=== PATIENT | female | born 1960 | race Caucasian/White ===

== ENCOUNTER 2018-11-21 17:02 | Inpatient (IN) ==
--- NOTE | 2018-11-21 18:39 | Diag Imaging Result Doc PS360 ---
XRAY HIP UNILATERAL RT - 11/21/2018 INDICATION: s/p fall TECHNIQUE: Two views COMPARISON: None FINDINGS: There is a displaced intertrochanteric right proximal femur fracture. No dislocation. IMPRESSION: Displaced intertrochanteric right proximal femur fracture. Electronically signed by Pradeep Jacskon 11/21/2018 6:37 PM
[2018-11-21] MEDS ORDERED: PERCOCET-10 PO ONE (19:25)
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
[2018-11-21 20:12] LABS: BASO# 0.06 X1000 (0.0-0.2); BASO% 0.3 % (0.0-0.8); EOS# 0.41 X1000 (0.0-0.7); EOS% 1.8 % (0.0-10.0); HEMATOCRIT 48.4 % (37.0-47.0); HEMOGLOBIN 15.6 g/dL (12.0-16.0); IMM GRAN# 0.11 X1000 (0.0-0.04); IMM GRAN% 0.5 % (0.0-0.5); LYMPH# 3.66 X1000 (1.2-3.4); LYMPH% 16.4 % (20.5-51.1); MCH 30.6 PG (27-31); MCHC 32.2 g/dL (33-37); MCV 94.9 FL (81-99); MONO# 2.14 X1000 (0.11-0.59); MONO% 9.6 % (1.7-9.3); MPV 10.7 FL (7.4-10.4); NEUT# 15.96 X1000 (1.4-6.5); NEUT% 71.4 % (42.2-75.2); PLT 366 X1000 (130-400); RDW 13.6 % (11.5-14.5); WBC 22.34 X1000 (4.8-10.8)
[2018-11-21 20:27] LABS: AGAP 12; ALB/GLOB RATIO 0.6; ALKALINE PHOSPHATASE 108 U/L (32-104); BUN 39 mg/dL (8-22); CALCIUM 10.8 mg/dL (8.8-10.2); CHLORIDE 95 mmol/L (98-107); COSMO 286; CREATININE 0.9 mg/dL (0.5-0.9); ESTIMATED GFR > 60; GLUCOSE 219 mg/dL (70-104); GOT 34 U/L (10-30); GPT 29 U/L (10-36); POTASSIUM 5.1 mmol/L (3.5-5.1); SODIUM 135 mmol/L (136-145); TCO2 28 mmol/L (25-35); TOTAL BILIRUBIN 0.28 mg/dL (0.20-1.00); TOTAL PROTEIN 8.1 g/dL (6.3-8.3)
--- NOTE | 2018-11-21 21:18 | Diag Imaging Result Doc PS360 ---
CHEST-PORTABLE - 11/21/2018 INDICATION: Fall, Hip Fx,Leukocytosis COMPARISON: 04/11/2015 FINDINGS: Stable metallic stents in the aortic arch. The lungs are clear. Heart size is normal. No pneumothorax or pleural effusion. IMPRESSION: No acute disease or change from prior. Electronically signed by Pradeep Jackson 11/21/2018 9:16 PM
[2018-11-21] MEDS ORDERED: NS 1,000 ML IV SCH (21:48)
[2018-11-21] MEDS ORDERED: ZOFRAN IV PRN (21:48)
[2018-11-21] MEDS ORDERED: TYLENOL PO PRN (21:48)
[2018-11-21 21:52] LABS: HEMOGLOBIN A1C 9.6 % (4.8-6.0)
[2018-11-21] MEDS ORDERED: NICODERM PATCH TD PRN (21:52)
[2018-11-21 22:11] LABS: INR 0.87; PROTIME 12.5 Seconds (11.0-16.0)
[2018-11-21 22:12] LABS: PTT 30.2 Seconds (22.3-41.8)
--- NOTE | 2018-11-21 22:50 | HISTORY AND PHYSICAL ---
ADDENDUM: We examined this patient together. She is a pleasant 57-year-old female who came in for evaluation after she twisted her right leg. I think she was trying to throw out some trash. She fell, kind of sat down, but her foot came down hard and she felt a pop in her hip, and subsequently could not walk or anything to that degree. She was found to have, I believe, a displaced intertrochanteric hip fracture. On exam, she is breathing comfortably. No wheezing or rales. Her right leg is externally rotated but not foreshortened. Her labs show significant leukocytosis. She also has a little bit of hypercalcemia. In any case she will be admitted for her right hip fracture. She has metallic stents in her aortic arch, which she did not talk about before. I do not know if she has had an aortic repair. She is not on any blood thinners, so I do not know if she has had a graft her aorta or what have you. She has had an aneurysm repair. She will be admitted for treatment. We will continue pain control, analgesic control, and Dr. Chaudhari has been consulted for evaluation for hip fracture. This was a [id number] encounter note with YOHANA Fang. cc: Nehemiah Langley MD
[2018-11-21] MEDS: HUMULIN R SUBQ SCH (23:34)
[2018-11-22 00:02] LABS: URINE SOURCE CATH
[2018-11-22 00:06] LABS: UR EPITHELIAL CELLS <10 /HPF (<10); URINE BACTERIA 4+ /HPF; URINE RBC <10 /HPF (<10); URINE WBC <10 /HPF (<10)
[2018-11-22 00:07] LABS: BILIRUBIN URINE NEGATIVE (NEGATIVE); BLOOD URINE TRACE (NEGATIVE); COLOR YELLOW; GLUCOSE URINE NEGATIVE (NEGATIVE); KETONE URINE NEGATIVE (NEGATIVE); LEUKOCYTES URINE SMALL (NEGATIVE); NITRITE URINE NEGATIVE (NEGATIVE); PROTEIN URINE 300 mg/dL (NEGATIVE); SP GRAVITY URINE 1.016; TURBIDITY URINE HAZY (CLEAR); UROBILINOGEN URINE NORMAL (NORMAL)
[2018-11-22] MEDS: DILAUDID IV PRN ×2 (00:07→06:08)
[2018-11-22] MEDS ORDERED: NEURONTIN PO PRN (02:30)
[2018-11-22] MEDS: NS 1,000 ML IV SCH ×2 (05:41→09:19)
[2018-11-22 06:13] LABS: BASO# 0.15 X1000 (0.0-0.2); BASO% 0.8 % (0.0-0.8); EOS# 0.56 X1000 (0.0-0.7); EOS% 2.9 % (0.0-10.0); HEMATOCRIT 47.8 % (37.0-47.0); HEMOGLOBIN 15.3 g/dL (12.0-16.0); IMM GRAN# 0.09 X1000 (0.0-0.04); IMM GRAN% 0.5 % (0.0-0.5); LYMPH% 28.7 % (20.5-51.1); MCH 31.3 PG (27-31); MCV 97.8 FL (81-99); MONO# 2.29 X1000 (0.11-0.59); MPV 10.6 FL (7.4-10.4); NEUT# 10.55 X1000 (1.4-6.5); NEUT% 55.1 % (42.2-75.2); PLT 267 X1000 (130-400); RBC 4.89 XMIL (4.2-5.4); WBC 19.14 X1000 (4.8-10.8)
[2018-11-22 06:16] LABS: HEMOGLOBIN A1C 9.7 % (4.8-6.0)
[2018-11-22 06:53] LABS: EOS 1 % (1-10); LYMPHS 34 % (21-51); MONO 4 % (1-9); SEGS 60 % (42-75)
[2018-11-22 07:07] LABS: AGAP 13; ALKALINE PHOSPHATASE 101 U/L (32-104); BUN 36 mg/dL (8-22); CALCIUM 8.9 mg/dL (8.8-10.2); CHLORIDE 97 mmol/L (98-107); COSMO 284; CREATININE 0.8 mg/dL (0.5-0.9); ESTIMATED GFR > 60; GLUCOSE 167 mg/dL (70-104); GOT 37 U/L (10-30); GPT 26 U/L (10-36); POTASSIUM 5.5 mmol/L (3.5-5.1); SODIUM 136 mmol/L (136-145); TCO2 26 mmol/L (25-35); TOTAL BILIRUBIN 0.24 mg/dL (0.20-1.00); TOTAL PROTEIN 6.1 g/dL (6.3-8.3)
[2018-11-22] MEDS: HUMULIN R SUBQ SCH ×4 (07:11→21:04)
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
[2018-11-22] MEDS: DUONEB (A & A) INH PRN (08:06)
[2018-11-22] MEDS: LEXAPRO PO SCH ×2 (09:21→14:56)
[2018-11-22] MEDS ORDERED: ROBINUL ONE (11:33)
[2018-11-22] MEDS ORDERED: XYLOCAINE-MPF 2% ONE (11:33)
[2018-11-22] MEDS ORDERED: ZOFRAN ONE (11:33)
[2018-11-22] MEDS ORDERED: FENTANYL ONE (11:33)
[2018-11-22] MEDS ORDERED: DECADRON ONE (11:33)
[2018-11-22] MEDS ORDERED: VANCOMYCIN 1 GM/NS 1 GM/250 ML IVPB ONE (11:34)
[2018-11-22] MEDS ORDERED: DIPRIVAN 1% ONE (11:34)
--- NOTE | 2018-11-22 12:07 | PROGRESS NOTE ---
DATE: 11/22/2018 SUBJECTIVE: This morning Ms. Tripp refers to be feeling okay, is awaiting for an orthopedic intervention. She still complains of some pain in the right hip. OBJECTIVE: Vital signs: Blood pressure is 119/47, pulse of 67, respirations 20, temperature 97.1 degrees, the patient is saturating 93% on room air. General: Ms. Tripp is a 57-year-old female. She is in bed, no distress. HEENT: Mucosa is pink and moist. Anicteric. Acyanotic. Neck: Supple. Chest: Air entry is bilaterally reduced. There is some faint end expiratory wheezing. There is also prolonged expiratory phase of respiration. Cardiovascular: Regular rate and rhythm. Abdomen: Soft. There is an old midline surgical scar from previous exploratory laparotomy. Extremities: No pedal edema. The right lower extremity is externally rotated and looks shorter. Genitourinary: Jiménez catheter is in place. Central nervous system: Patient is awake, alert, and oriented. LABORATORY DATA: WBC is 19.14, hemoglobin is 15.3, platelet count of 267,000. Differential is very normal. Chemistry is also reviewed, potassium is 5.5. Rest of chemistry is unremarkable. Patient's A1c is 9.7. IMAGIN. A hip x-ray shows a displaced intertrochanteric right proximal femur fracture. 2. A chest x-ray showed no acute disease. 3. I do not see any EKG. 4. An echocardiogram from 2018 did show an ejection fraction of 60 to 65 percent. There was no wall motion abnormality. No major valvulopathy. ASSESSMENT AND PLAN: 1. Status post mechanical fall. 2. Right intertrochanteric displaced fracture as a result of mechanical fall. The patient has been evaluated by Orthopedics and there is a plan for surgical intervention today. 3. Diabetes mellitus with presenting A1c of 9.7. The patient is currently on insulin regimen. We will restart her long acting detemir full dose after surgery. 4. Nicotine dependence. Patient has been counseled. 5. Suspected undiagnosed chronic obstructive pulmonary disease. The patient has more than 30 pack year history, sounds slightly wheezing. She is getting p.r.n. nebulization and we will advise that she follows up with Pulmonary Medicine on an outpatient basis for PFTs and official diagnosis of possible chronic obstructive pulmonary disease. The patient has been counseled about tobacco cessation. 6. Leukocytosis, probably reactive. The patient does not seem to have any focal source of infection. We would continue to keep eye on that. In general, Ms. Tripp is doing a lot better. She is not on any antithrombotic therapy. She does not have any history of cardiac condition nor long-standing chronic renal or liver pathology. She seems to have undiagnosed COPD which is compensated. She is going for a moderate risk nonvascular procedure in a moderate risk patient. We recommend surgery to proceed. cc: Louie Majano MD MTDD
[2018-11-22] MEDS: DILAUDID ONE ×3 (13:01→19:38)
[2018-11-22] MEDS ORDERED: ZOFRAN IV PRN (13:40)
[2018-11-22] MEDS ORDERED: MILK OF MAGNESIA PO PRN (13:40)
[2018-11-22] MEDS ORDERED: MORPHINE IV PRN (13:40)
[2018-11-22] MEDS ORDERED: HALDOL IV PRN (13:45)
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
[2018-11-22] MEDS: TYLENOL PO SCH ×2 (14:54→21:03)
--- NOTE | 2018-11-22 16:13 | OPERATIVE NOTE ---
PROCEDURE DATE: 11/21/2018 PREOPERATIVE DIAGNOSIS: Right intertrochanteric hip fracture. POSTOPERATIVE DIAGNOSIS: Right intertrochanteric hip fracture. PROCEDURE: Right TFN fixation of the hip. SURGEON: Genaro Chaudhari MD. ANESTHESIA: General. COMPLICATION: None. PROCEDURE IN DETAIL: A 57-year-old female presents for surgical fixation of a right intertrochanteric hip fracture. Risks, benefits, and no guarantees were discussed and she is willing to proceed. She was taken to the operating room and satisfactory anesthesia obtained. The right hip was prepped and draped in usual sterile fashion on the [place] table. A time-out was taken to confirm operative site, procedure, and patient. Gentle traction and slight internal rotation was utilized to reduce the hip near anatomically. The lateral aspect of the hip was prepped and draped in usual sterile fashion as noted. After ensuring a proper time-out, a 1 inch incision was made proximal to the greater trochanter and dissection carried down to the tip of the trochanter. TFN guide pin was placed down through the tip of the trochanter and down the intramedullary canal and reamed with the TFN reamer. A short TFN implant was then inserted down the proposed hole intramedullary after removing the guidewire. This was fully seated under fluoroscopic guidance. An accessory lateral incision was made for placement of the helical blade. The guide pin was placed through the guide up through the central aspect of the femoral neck and into the central femoral head with care taken to avoid any articular penetration. This was reamed and a 95 length helical blade inserted through the TFN. The anti-rotation screw was set proximally. The distal locking screw was placed through the short TFN using the provided guide with a 38 mm distal locking screw. The guide was removed and the C-arm used to verify accurate fracture reduction as well as hardware placement. The wounds were irrigated and closed in layers with 2-0 Vicryl and skin izaiah. Sterile dressings completed the closure and the patient was recovered from anesthesia and transferred to the recovery room in stable condition. No intraoperative complications were noted. Instrument count and sponge count was correct at the time of closure. cc: Keith Chaudhari MD
[2018-11-22] MEDS: OXY IR PO PRN ×2 (18:14→21:04)
[2018-11-22] MEDS: SEROQUEL PO SCH (21:03)
[2018-11-22] MEDS: PERIDEX MT SCH (21:04)
[2018-11-22] MEDS: COLACE PO SCH (21:04)
[2018-11-23] MEDS ORDERED: VANCOMYCIN 1 GM/NS 1 GM/250 ML IVPB IV SCH (00:01)
[2018-11-23] MEDS: NS 1,000 ML IV SCH ×3 (00:56→11:58)
[2018-11-23 06:32] LABS: HEMATOCRIT 42.9 % (37.0-47.0); HEMOGLOBIN 13.7 g/dL (12.0-16.0)
[2018-11-23 06:39] LABS: AGAP 5; BUN 26 mg/dL (8-22); CALCIUM 8.9 mg/dL (8.8-10.2); CHLORIDE 103 mmol/L (98-107); COSMO 287; CREATININE 0.7 mg/dL (0.5-0.9); ESTIMATED GFR > 60; GLUCOSE 155 mg/dL (70-104); POTASSIUM 4.9 mmol/L (3.5-5.1); SODIUM 140 mmol/L (136-145); TCO2 32 mmol/L (25-35)
[2018-11-23] MEDS: TYLENOL PO SCH ×2 (06:41→17:40)
[2018-11-23] MEDS: HUMULIN R SUBQ SCH ×4 (06:42→22:23)
[2018-11-23] MEDS: OXY IR PO PRN ×4 (07:57→22:30)
[2018-11-23] MEDS: LEXAPRO PO SCH (08:13)
[2018-11-23] MEDS: FERROUS SULFATE PO SCH (08:14)
[2018-11-23] MEDS: PERIDEX MT SCH ×2 (08:14→22:23)
[2018-11-23] MEDS ORDERED: CLONAZEPAM 2 MG PO PRN (08:30)
[2018-11-23] MEDS ORDERED: GABAPENTIN 800 MG PO PRN (08:30)
--- NOTE | 2018-11-23 10:00 | ORTHOPAEDICS PROGRESS NOTE ---
DATE: 11/23/2018 Ms. Tripp is seen status post pinning of her hip with TFN implant. Presently she is stable. She did have some dizziness when she got up with therapy. Currently, her vital signs are stable. Incision and bandage are clean and dry. She is motor and sensory intact with no signs of bleeding or infection. We will continue to mobilize her hip. She can be transferred out to rehabilitation center when she is mobilizing well. cc: Keith Chaudhari MD
[2018-11-23] MEDS ORDERED: LEVEMIR SUBQ SCH (11:00)
--- NOTE | 2018-11-23 11:52 | PROGRESS NOTE ---
DATE: 11/23/2018 SUBJECTIVE: This morning Ms Tripp refers to be feeling a lot better. The right hip pain has significantly improved since after the surgery. OBJECTIVE: Current vitals: Blood pressure is 128/36, pulse of 72, respiration is 24, temperature 98.3 degrees. On general exam, Ms. Tripp is a 57-year-old female. She is in bed. No seemingly distressed. Mucosa is pink and moist. Anicteric. Acyanotic. Neck is supple. Chest: Air entry is bilaterally reduced. There are no crepitations, no rhonchi. There is a mild prolonged expiratory phase of respiration. Cardiovascular: Regular rate and rhythm. No murmurs, no rubs, no gallops. Gastrointestinal: Abdomen is soft. There is an old midline surgical scar from previous exploratory laparotomy. Extremities: No pedal edema right lower extremity continues to be a little shorter and externally rotated, but the patient has normal sensation. There is sterile gauze over the surgical access on the right hip. LABORATORY DATA: Hemoglobin is 13.7. Chemistry is completely normal. Glucose is 155. ASSESSMENT: 1. Status post mechanical fall resulting in a right intertrochanteric displaced fracture. The patient is status post a right TFN repair of the hip. This was done by Dr. Chaudhari yesterday. 2. Diabetes mellitus with presenting A1c of 9.6. We will start the patient back on her home insulin regimen. 3. Nicotine dependence. Patient has been counseled. 4. Suspected undiagnosed chronic obstructive pulmonary disease. Patient is advised to follow up with Pulmonary Medicine. 5. Reactive leukocytosis. 6. Chronic benzodiazepine and gabapentin use. We will start the patient back on her home medication to prevent any withdrawal. cc: Louie Majano MD
[2018-11-23] MEDS: DUONEB (A & A) INH PRN (19:05)
[2018-11-23] MEDS ORDERED: INSULIN PEN NEEDLES ONE (22:10)
[2018-11-23] MEDS: COLACE PO SCH (22:22)
[2018-11-23] MEDS: SEROQUEL PO SCH (22:22)
[2018-11-23] MEDS: LEVEMIR SUBQ SCH (22:25)
[2018-11-24] MEDS: NS 1,000 ML IV SCH ×2 (00:10→12:31)
[2018-11-24] MEDS: TYLENOL PO SCH ×3 (03:41→21:05)
[2018-11-24] MEDS: OXY IR PO PRN ×4 (04:40→21:02)
[2018-11-24] MEDS: XARELTO PO SCH (05:43)
[2018-11-24 06:31] LABS: HEMATOCRIT 44.2 % (37.0-47.0); HEMOGLOBIN 13.9 g/dL (12.0-16.0); MCH 31.2 PG (27-31); MCHC 31.4 g/dL (33-37); MCV 99.3 FL (81-99); MPV 10.8 FL (7.4-10.4); RBC 4.45 XMIL (4.2-5.4); RDW 13.4 % (11.5-14.5); WBC 19.17 X1000 (4.8-10.8)
[2018-11-24] MEDS: HUMULIN R SUBQ SCH ×3 (06:48→21:03)
[2018-11-24 07:03] LABS: AGAP 11; BUN 13 mg/dL (8-22); CHLORIDE 102 mmol/L (98-107); GLUCOSE 134 mg/dL (70-104); POTASSIUM 5.1 mmol/L (3.5-5.1); SODIUM 138 mmol/L (136-145); TCO2 25 mmol/L (25-35)
[2018-11-24 07:04] LABS: CALCIUM 8.7 mg/dL (8.8-10.2); COSMO 278; CREATININE 0.6 mg/dL (0.5-0.9); ESTIMATED GFR > 60; PHOSPHORUS 2.7 mg/dL (2.7-4.5)
--- NOTE | 2018-11-24 07:29 | EKG Report ---
Test Performed on : 11/22/2018 1:30:51 PM Test Reason : perioperative evaluation. DM/COPD Blood Pressure : / mmHG Vent. Rate : 077 BPM Atrial Rate : 077 BPM P-R Int : 134 ms QRS Dur : 078 ms QT Int : 398 ms P-R-T Axes : 070 -34 080 degrees QTc Int : 450 ms Normal sinus rhythm. Left axis deviation Abnormal ECG When compared with ECG of 21-NOV-2018 21:52, (Unconfirmed) Criteria for Septal infarct are no longer present Confirmed by Betina HUFFMAN, Leobardo Higuera ([id number]) on 11/24/2018 9:30:31 AM
--- NOTE | 2018-11-24 07:52 | EKG Report ---
Test Performed on : 11/21/2018 9:52:55 PM Test Reason : fall Blood Pressure : / mmHG Vent. Rate : 073 BPM Atrial Rate : 073 BPM P-R Int : 136 ms QRS Dur : 078 ms QT Int : 392 ms P-R-T Axes : 074 -27 066 degrees QTc Int : 431 ms Normal sinus rhythm. Septal infarct , age undetermined Abnormal ECG No previous ECGs available Unconfirmed Result
[2018-11-24] MEDS: DUONEB (A & A) INH PRN ×2 (08:34→11:14)
--- NOTE | 2018-11-24 08:41 | ORTHOPAEDICS PROGRESS NOTE ---
DATE: 11/24/2018 SUBJECTIVE DATA: Ms. Tripp is seen on her postoperative right intertrochanteric hip fracture fixation. She reports she is doing well at this time. She reports she did have some slight dizziness when physical therapy came by to get her up out of the bed. She also states that she was unable to walk because of the dizziness. She states her pain is a 5/10 at this time. OBJECTIVE DATA: Incision sites are clean and dry. There is good capillary refill in toes. There are good pedal pulses. There is negative Homans sign. Vital signs are stable. There is a slightly elevated white count. ASSESSMENT: Right intertrochanteric hip fracture with Titanium Trochanteric Fixation Nail. PLAN: We will plan on monitoring Ms. Tripp while she is in the hospital. She will continue to get IV fluids for her dizziness. She will need to be mobilized with physical therapy before going home. We will check back on her tomorrow. Dictated by YOHANA Rincon for Keith Chaudhari MD cc: YOHANA Rincon MD
[2018-11-24] MEDS: LEXAPRO PO SCH (09:12)
[2018-11-24] MEDS: LEVEMIR SUBQ SCH ×2 (09:13→21:01)
[2018-11-24] MEDS: PERIDEX MT SCH ×2 (09:13→21:03)
[2018-11-24] MEDS: FERROUS SULFATE PO SCH (09:13)
[2018-11-24] MEDS ORDERED: PNEUMOVAX 23 IM ONE (10:15)
[2018-11-24] MEDS: KLONOPIN PO PRN (11:24)
--- NOTE | 2018-11-24 12:40 | PROGRESS NOTE ---
DATE: 11/24/2018 SUBJECTIVE: This morning, Ms. Tripp refers to be doing a whole lot better. Still hurting but not like days before. OBJECTIVE: Vital Signs: Blood pressure is 143/50, pulse of 82, respirations are 20, temperature is 98.2 degrees, the patient is saturating 93%. General Examination: Ms. Tripp is a 57-year-old, female. She is in bed. No distress. HEENT: Mucosa is pink and moist. Anicteric. Acyanotic. Neck: Supple. Chest: Good air entry bilaterally. There is a mild prolonged expiratory phase of respiration but no rhonchi. Cardiovascular: Regular rate and rhythm. No murmurs, no rubs, no gallops. GI: Abdomen is soft. There is an old midline surgical scar from previous exploratory laparotomy. Extremities: No pedal edema. The right lower extremity still has a sterile Band-Aid over the lateral aspect but the patient is neurovascularly intact. Laboratory Data: WBC is 19.17, hemoglobin is 13.9, platelet count of 322,000. Chemistry is also reviewed and it is completely normal. The patient's current medications have all been reviewed and no changes. ASSESSMENT: 1. Status post mechanical fall resulting in a right intertrochanteric displaced fracture. The patient is status post right trochanteric fixation nail repair by Dr. Chaudhari. Today is day 2 postop. We are pending physical therapy evaluation. 2. Diabetes mellitus with presenting A1c of 9.6. We will continue with insulin regimen. 3. Nicotine dependence. Patient has been counseled. 4. Suspected undiagnosed chronic obstructive pulmonary disease. Patient will follow up with pulmonary medicine. 5. Reactive leukocytosis. 6. Chronic benzodiazepine and gabapentin use. Patient has been started back. PLAN: Today, Jiménez catheter is going to be removed. We are waiting on physical therapy evaluation, and both social work and case management have been notified about the need for rehab. We are going to be pending the final arrangements. cc: Louie Majano MD
[2018-11-24] MEDS: COLACE PO SCH (21:02)
[2018-11-24] MEDS: SEROQUEL PO SCH (21:03)
[2018-11-25] MEDS: KLONOPIN PO PRN ×2 (00:16→22:51)
[2018-11-25] MEDS: OXY IR PO PRN ×5 (00:16→22:51)
[2018-11-25] MEDS: TYLENOL PO SCH ×3 (06:03→22:52)
[2018-11-25] MEDS: XARELTO PO SCH (06:03)
[2018-11-25 06:12] LABS: HEMATOCRIT 41.5 % (37.0-47.0)
--- NOTE | 2018-11-25 09:51 | PROGRESS NOTE ---
DATE: 11/25/2018 SUBJECTIVE: This morning, Ms. Tripp refers to be feeling a lot better. Still had some pains in the right hip. She did participate with therapy yesterday. It is documented that she made it 2 feet with assistance. OBJECTIVE: Vital Signs: Blood pressure is 129/48, pulse of 50, respirations are 22, temperature is 97.5 degrees, the patient is saturating 92% on 3 L. General Examination: Ms. Tripp is a 57- year-old, female. She is in bed. No distress. HEENT: Mucosa is pink and moist. Anicteric. Acyanotic. Neck: Supple. Chest: Good air entry bilaterally. There were no crepitations. No rhonchi. Cardiovascular: Regular rate and rhythm. There are no murmurs, no rubs, no gallops. GI: Abdomen is soft. There is an old midline surgical scar from previous exploratory laparotomy. There is no hepatosplenomegaly. Extremities: No pedal edema. Right lower extremity still has a sterile dressing over the lateral aspect where the surgical procedure took place. The patient is neurovascularly intact. Laboratory Data: Hemoglobin is 13.0 which is fairly stable. Glucose this morning is 83. ASSESSMENT: 1. Status post mechanical fall resulting in a right intertrochanteric displaced fracture. The patient underwent a right trochanteric fixation nail repair by Dr. Chaudhari. Today is day 3. She seems to be doing well. She is getting physical therapy. 2. Diabetes mellitus with presenting A1c of 9.6. The patient is currently on insulin regimen. 3. Nicotine dependence. The patient has been counseled. 4. Chronic obstructive pulmonary disease with mild bronchospasm, improved. We will continue with as needed nebulizations. The patient has been advised to follow up with pulmonary medicine. 5. Reactive leukocytosis. 6. Chronic benzodiazepine and gabapentin use noted. PLAN: In general, Ms. Tripp is doing well. She is pending rehab. However, I understand that due to her insurance issues, she cannot go to [facility] where she would want to. The alternate plan would be to get her strong enough that we can discharge her home for her to do rehab access on an outpatient basis. We are going to monitor her progress with physical therapy here in the hospital and then make a decision when she will be ready for discharge. Ms. Tripp is also on Xarelto for DVT prophylaxis after orthopedic surgery. cc: Louie Majano MD MTDD
[2018-11-25] MEDS: HUMULIN R SUBQ SCH ×4 (09:57→22:53)
[2018-11-25] MEDS: LEVEMIR SUBQ SCH ×2 (10:19→21:00)
[2018-11-25] MEDS: LEXAPRO PO SCH (10:19)
[2018-11-25] MEDS: PERIDEX MT SCH ×2 (10:19→22:51)
[2018-11-25] MEDS: FERROUS SULFATE PO SCH (10:19)
--- NOTE | 2018-11-25 15:09 | ORTHOPAEDICS PROGRESS NOTE ---
DATE: 11/25/2018 SUBJECTIVE DATA: Ms. Tripp is seen for her right intertrochanteric hip fracture post TFN fixation. She states she is doing well at this time, and does have some soreness on her hip. She states that her pain is a 5/10. OBJECTIVE DATA: There is good range of motion to the right knee and hip. There is some tenderness along the lateral anterior hip. There is no active bleeding. The bandages are clean and dry. There is negative Homans sign. The patient is able to flex her quadriceps muscles without difficulty. There are good pedal pulses. There is good capillary refill in the toes. ASSESSMENT: Right intertrochanteric hip fracture with titanium trochanteric fixation nail fixation. PLAN: The plan is actually changed for this patient. She was supposed to go to [facility]. Her insurance does not cover this place. She is now planning to go home with home health. She will need to follow up in the office in about 1 week to get her izaiah removed. Will check back on her then. Dictated by YOHANA Rincon for Keith Chaudhari MD cc: YOHANA Rincon MD
[2018-11-25 18:33] LABS: URINE SOURCE CATH
[2018-11-25 18:36] LABS: BILIRUBIN URINE NEGATIVE (NEGATIVE); BLOOD URINE TRACE (NEGATIVE); COLOR YELLOW; GLUCOSE URINE TRACE mg/dL (NEGATIVE); KETONE URINE NEGATIVE (NEGATIVE); LEUKOCYTES URINE NEGATIVE (NEGATIVE); NITRITE URINE NEGATIVE (NEGATIVE); PROTEIN URINE 200 mg/dL (NEGATIVE); SP GRAVITY URINE 1.016; TURBIDITY URINE CLEAR (CLEAR); UR EPITHELIAL CELLS <10 /HPF (<10); URINE BACTERIA NEGATIVE /HPF; URINE RBC <10 /HPF (<10); URINE WBC <10 /HPF (<10); UROBILINOGEN URINE NORMAL (NORMAL)
[2018-11-25] MEDS: SEROQUEL PO SCH (22:52)
[2018-11-25] MEDS: COLACE PO SCH (22:52)
[2018-11-26] MEDS: OXY IR PO PRN ×4 (03:04→22:00)
[2018-11-26] MEDS ORDERED: TUCKS PADS TOP PRN (03:08)
[2018-11-26] MEDS: TYLENOL PO SCH ×3 (06:40→22:00)
[2018-11-26] MEDS: XARELTO PO SCH (06:40)
[2018-11-26 06:41] LABS: HEMATOCRIT 43.4 % (37.0-47.0); HEMOGLOBIN 13.5 g/dL (12.0-16.0); MCH 30.7 PG (27-31); MCHC 31.1 g/dL (33-37); MCV 98.6 FL (81-99); MPV 10.3 FL (7.4-10.4); RBC 4.4 XMIL (4.2-5.4); RDW 13.5 % (11.5-14.5); WBC 17.66 X1000 (4.8-10.8)
[2018-11-26 06:59] LABS: AGAP 7; ALBUMIN 2.6 g/dL (3.5-5.0); BUN 12 mg/dL (8-22); CALCIUM 8.7 mg/dL (8.8-10.2); CHLORIDE 102 mmol/L (98-107); COSMO 285; CREATININE 0.6 mg/dL (0.5-0.9); ESTIMATED GFR > 60; GLUCOSE 106 mg/dL (70-104); PHOSPHORUS 3.9 mg/dL (2.7-4.5); POTASSIUM 4.2 mmol/L (3.5-5.1); SODIUM 143 mmol/L (136-145); TCO2 34 mmol/L (25-35)
[2018-11-26] MEDS: HUMULIN R SUBQ SCH ×4 (08:38→22:06)
[2018-11-26] MEDS: LEXAPRO PO SCH (08:54)
[2018-11-26] MEDS: FERROUS SULFATE PO SCH (08:54)
[2018-11-26] MEDS: PERIDEX MT SCH ×2 (08:54→22:05)
[2018-11-26] MEDS: FLOMAX PO SCH (08:55)
[2018-11-26] MEDS: LEVEMIR SUBQ SCH ×2 (09:08→22:02)
--- NOTE | 2018-11-26 09:37 | PROGRESS NOTE ---
DATE: 11/26/2018 SUBJECTIVE: This morning, Ms. Tripp refers to be feeling a lot better, less pain in the hip. I understand she has been having issues with emptying her bladder, and she has to be getting in-and- out catheterization. OBJECTIVE: Current Vital Signs: Blood pressure is 138/54, pulse of 62, respirations 16, temperature 98.1 degrees. General: Ms. Tripp is a 57-year-old female. She is in bed. No distress. HEENT: Mucosa is pink and moist. Anicteric. Acyanotic. Neck: Supple. Respiratory: There is good air entry bilaterally. No crepitations. No rhonchi. Cardiovascular: Regular rate and rhythm. No murmurs, no gallops. GI: Abdomen is soft. It is nontender. Bowel sounds are present. There is an old surgical scar from previous exploratory laparotomy. No hepatosplenomegaly. Extremities: No pedal edema. The right lower extremity still has a sterile dressing over the lateral aspect where the surgical procedure took place. Neurologic: The patient is neurologically intact. LABORATORY DATA: WBC is down to 17.66, hemoglobin is 13.5, platelet count of 379,000. Chemistry is also reviewed and is completely normal. Urine culture shows no growth. ASSESSMENT: 1. Status post mechanical fall resulting in right intertrochanteric displaced fracture. The patient is status post right trochanteric fixation nail repair by Dr. Chaudhari today, day 4. He is getting physical therapy. 2. Diabetes mellitus with presenting A1c of 9.6. The patient is on insulin regimen. Seems to be doing well. 3. Chronic obstructive pulmonary disease with mild bronchospasm, improved. 4. Nicotine dependence. The patient has been counseled. 5. Urinary retention. The patient has been getting in-and-out catheterization. So far, urine cultures have been negative. I think as the patient increases her activity level, this will also improve. We will discontinue any medication that has potential to cause this, and the patient has been started on tamsulosin to help with the bladder neck physiology. cc: Louie Majano MD
[2018-11-26] MEDS: KLONOPIN PO PRN ×2 (13:27→21:59)
[2018-11-26] MEDS: MIRALAX PO SCH (13:28)
[2018-11-26] MEDS: COLACE PO SCH (22:00)
[2018-11-26] MEDS: SEROQUEL PO SCH (22:00)
[2018-11-27] MEDS: TYLENOL PO SCH ×3 (06:57→22:03)
[2018-11-27] MEDS: OXY IR PO PRN ×5 (06:57→22:38)
[2018-11-27] MEDS: XARELTO PO SCH (06:57)
[2018-11-27] MEDS: HUMULIN R SUBQ SCH ×4 (07:47→22:02)
[2018-11-27] MEDS: PERIDEX MT SCH ×2 (09:15→22:03)
[2018-11-27] MEDS: MIRALAX PO SCH (09:15)
[2018-11-27] MEDS: FLOMAX PO SCH ×2 (09:15→22:03)
[2018-11-27] MEDS: FERROUS SULFATE PO SCH (09:15)
[2018-11-27] MEDS: LEXAPRO PO SCH (09:15)
[2018-11-27] MEDS: KLONOPIN PO PRN ×2 (09:16→19:28)
--- NOTE | 2018-11-27 10:41 | PROGRESS NOTE ---
DATE: 11/27/2018 SUBJECTIVE: This morning Miss Tripp refers to be feeling a lot better. She is participating more with physical therapy, but she is concerned that she has not been voiding that much. OBJECTIVE: Vital signs: Blood pressure is 155/59, pulse 63, respirations 16, temperature 97.9 degrees. General: Miss Tripp is a 57-year-old female. She is in bed. No distress. heent: Mucous is pink and moist. Anicteric. Acyanotic. Neck: Supple. Chest: Good air entry bilaterally. No crepitations. No rhonchi. Cardiovascular: Regular rate and rhythm. Abdomen: Soft. There is an old scar on the mid anterior abdominal wall from previous exploratory laparotomy. No hepatosplenomegaly. Bowel sounds present. Extremities: No pedal edema. The right lower extremity has sutures on the lateral aspect of the thigh. The suture site looks clean. No drainage. Neurological: The patient is intact. LABORATORY DATA: None for today. Glucose is 148. ASSESSMENT: 1. Status post mechanical fall resulting in a right intertrochanteric displaced fracture. The patient is status post right TFN repair by Dr. Chaudhari. Today is day 5. The patient is getting physical therapy. 2. Uncontrolled diabetes mellitus with presenting A1c of 9.6. The patient is currently on insulin regimen. Glucose is doing well. 3. Chronic obstructive pulmonary disease with mild exacerbation, improved. 4. Nicotine dependence. The patient has been counseled. 5. Urine retention after surgery. The patient continues to be having retention. She is currently getting in-and-out catheterizations as needed. She has been started on tamsulosin and we are going to go up on that today. Hopefully, the bladder neck opens up for her to void normally. If not, we are going to put a Jiménez catheter in her tomorrow before she leaves and let her follow up with Urology within a week. cc: Louie Majano MD
[2018-11-27] MEDS: LEVEMIR SUBQ SCH ×2 (13:09→22:02)
[2018-11-27] MEDS: COLACE PO SCH (22:03)
[2018-11-27] MEDS: SEROQUEL PO SCH (22:03)
[2018-11-28] MEDS: XARELTO PO SCH (05:07)
[2018-11-28] MEDS: TYLENOL PO SCH (05:07)
[2018-11-28] MEDS: OXY IR PO PRN ×2 (05:10→08:31)
[2018-11-28] MEDS: HUMULIN R SUBQ SCH ×2 (06:33→11:42)
[2018-11-28] MEDS: FERROUS SULFATE PO SCH (08:28)
[2018-11-28] MEDS: PERIDEX MT SCH (08:28)
[2018-11-28] MEDS: MIRALAX PO SCH (08:28)
[2018-11-28] MEDS: FLOMAX PO SCH (08:28)
[2018-11-28] MEDS: LEXAPRO PO SCH (08:29)
[2018-11-28] MEDS: KLONOPIN PO PRN (08:31)
[2018-11-28 11:05] VITALS: BP 132/60
[2018-11-28] MEDS: LEVEMIR SUBQ SCH (11:41)
--- NOTE | 2018-11-28 14:39 | DISCHARGE SUMMARY ---
ADMISSION DATE: 11/21/2018 DISCHARGE DATE: 11/28/2018 The patient's length of stay was 7 days. FOLLOW-UP: Will be with: 1. Dr. Ibrahim. 2. Dr. Breen. 3. Dr. Chaudhari. CONSULTATION DURING THIS ADMISSION: Orthopedics was consulted. Patient was seen by Dr. Chaudhari. INVASIVE PROCEDURES DONE DURING THIS ADMISSION: Right TFN fixation of the hip was done by Dr. Chaudhari on 11/21/2018. IMAGING STUDIES OF SIGNIFICANCE: Hip x-ray showed displaced intertrochanteric right proximal femur fracture. A chest x-ray was unremarkable. ADMISSION DIAGNOSES: 1. Shows the right intertrochanteric hip fracture. 2. Mechanical fall. 3. Diabetes mellitus. 4. Bipolar disorder. 5. Asymptomatic bacteriuria. DIAGNOSES AT THE TIME OF DISCHARGE: 1. Status post mechanical fall resulting in a right intertrochanteric displaced fracture. The patient was status post right TFN repair by Dr. Chaudhari. 2. Uncontrolled diabetes mellitus type 2, on presentation with an A1c of 9.6. The patient is currently on insulin regimen. 3. COPD with mild exacerbation, improved. 4. Nicotine dependence. Patient has been counseled. 5. Urinary retention after orthopedic surgery. The patient did have multiple in-and-out catheterization during the hospital course, however she continues to retain so a Jiménez catheter has been placed and patient will follow up with Urology on outpatient basis. She was also started on Flomax. DISCHARGE MEDICATIONS: 1. Gabapentin 800 mg p.o. 3 times per day. 2. Seroquel 200 mg p.o. at bedtime. 3. Clonazepam 2 mg p.o. 3 times per day p.r.n. 4. Trulicity 1.5 mg subcutaneously as directed. 5. Iron sulfate 325 p.o. daily. 6. Tamsulosin 0.4 b.i.d. 7. Levemir 30 units b.i.d. 8. Rivaroxaban 10 mg p.o. daily. 9. Oxycodone 5 mg p.o. q. 6 h. p.r.n. PRESENTING COMPLAINT: Fall and right hip pain. HISTORY OF PRESENTING COMPLAINT: Ms. Tripp is a 57-year-old female with history of COPD, diabetes who said she had a mechanical fall after which she could not get up and sustain her weight. She was brought into the emergency room where she was evaluated and the imaging studies did reveal an intertrochanteric fracture of the right femur. The patient was subsequently admitted for further medical care. HOSPITAL COURSE: Ms. Tripp was admitted to the medical floor. Orthopedic was consulted. Patient was seen by Dr. Chaudhari. Intervention was done and patient did well postoperatively. During the hospital course, Ms. Tripp also had mild exacerbation of her COPD, which was addressed. All her other comorbidities including diabetes, were addressed. Home medications were also restarted. During the hospital course, Ms. Tripp initially was deemed to have to go to rehab, however because of her insurance issues, she could not get any rehab facility to accept her. She is being discharged to go on the [facility]. This has been arranged by the social service technician during the hospital course. During the hospital course, Ms. Tripp also did have issues with her bladder with urination. She seems to be retaining urine and had to have in-and-out catheterization done at least about 3 to 4 times. This morning, she continues to retain so we have made a decision to keep a Jiménez catheter in and let her see Urology on outpatient basis. She was started on Flomax about 3 days ago. This morning, Ms. Tripp refers to be feeling well. She denies any new complaints. OBJECTIVE: Her vitals stable. Blood pressure is 132/60, pulse of 64, respirations 18, temperature 98.1 degrees. We think Ms. Tripp is stable for discharge. As we said, she is going to be doing physical therapy with [facility] and she will follow up with Dr. Chaudhari as well as with Dr. Breen for the urinary retention. All the discharge instructions have been discussed with her and she voiced understanding. TIME SPENT FOR DISCHARGE: 37 minutes. cc: MD Boy Horn MD Patrick Guthrie, MD John R. Riehl, MD
== END 2018-11-28 14:22 | disposition home or self-care (01) | DRG 481 ==
LOC: SUPCPDRO → ED 17:02 → 4N 21:12 → SUATTDRO 21:12
PROVIDERS: ATTEND Internal Medicine
CPT/HCPCS: 71010; 71045; 73502; 76000; 80048; 80053; 80069; 80178; 81001; 82948; 83036; 85014; 85018; 85025; 85027; 85610; 85730; 86850; 86900; 86901; 87088; 93005; 93010; 94640; 94761; 94799; 97110; 97162; 97530; 99285; A9270; J1100; J1170; J2405; J3010; J3370; J7030; XXXXX